=== PATIENT | female | born 1945 | race Two or more races ===

== ENCOUNTER 2016-10-02 14:33 | Outpatient (CLI) | payer MEDICARE, MEDICAID | END 2016-10-02 23:59 | disposition home or self-care (01) | LOC: CT 14:33 → MERGE 14:33 → CT 23:59 | PROVIDERS: ATTEND Internal Medicine | DX: D32.0 Benign neoplasm of cerebral meninges (principal); G93.89 Other specified disorders of brain | CPT/HCPCS: 70450 ==

== ENCOUNTER 2021-04-30 11:51 | Outpatient (CLI) | payer MEDICARE, OTHER | END 2021-04-30 23:59 | disposition home or self-care (01) | LOC: CT 11:51 | PROVIDERS: ATTEND Internal Medicine | DX: R51.9 Headache, unspecified (principal) | CPT/HCPCS: 70450 ==